=== PATIENT | male | born 1980 | race Two or more races ===

== ENCOUNTER 2022-10-12 20:03 | Inpatient (IN) | payer BC, OTHER ==
[~2022-10-12] VITALS: Ht 180.3 cm; Wt 101.0 kg
[2022-10-12 20:59] LABS: Basophils # (auto) 0.1 10 ^3/uL (0-0.2); Eosinophils # (auto) 0.2 10 ^3/uL (0-0.8); Lymphocytes # (auto) 2.5 10 ^3/uL (0.4-5.4); Lymphocytes % (auto) 28.4 % (10.0-50.0); Mean Corpuscular Hemoglobin 31.1 pg (28.0-32.0); Mean Corpuscular Hgb Conc. 34.1 g/dL (32.0-36.0); Mean Corpuscular Volume 91.3 fL (80.0-100.0); Monocytes # (auto) 0.6 10 ^3/uL (0-1.3); Monocytes % (auto) 7.2 % (0.0-12.0); Neutrophils # (auto) 5.4 10 ^3/uL (1.6-8.6); Neutrophils % (auto) 61.4 % (37.0-80.0); Nucleated Red Blood Cells % 0.1 %; Red Blood Cells 4.81 10^6/uL (4.5-5.90); Red Cell Distribution Width 13.2 % (11.8-14.3); White Blood Cell 8.8 10^3/uL (4.4-10.8)
[2022-10-12 21:17] LABS: Albumin 3.8 g/dL (3.4-5.0); Calcium 8.5 mg/dL (8.5-10.1); Potassium 4.2 mmol/L (3.5-5.1)
[2022-10-12 21:21] LABS: BUN/Creatinine Ratio 14.5 (10.0-20.0); Bilirubin, Total 0.5 mg/dL (0.2-1.0); Total Protein 7.6 g/dL (6.4-8.2)
[2022-10-12] MEDS ORDERED: PANTOPRAZOLE 40 MG/10 ML VIAL INJ IV ONE (22:15)
[2022-10-12] MEDS ORDERED: ENOXAPARIN SOD 100 MG/1 ML SYRINGE SC ONE (22:15)
[2022-10-12] MEDS ORDERED: SODIUM CHLORIDE 0.9% 1,000 ML IV ONE (22:15)
[2022-10-12 22:56] LABS: INR 1.1 (0.9-1.15); Partial Thromboplastin Time 30.1 SEC (24.5-34.5)
[2022-10-12] MEDS: SODIUM CHLORIDE 0.9% 1,000 ML IV SCH (23:00)
[2022-10-12] MEDS ORDERED: DOCUSATE SOD 100 MG CAP PO PRN (23:00)
[2022-10-12] MEDS ORDERED: DEXTROSE (50%) 50ML SYRG IV PRN (23:00)
[2022-10-12] MEDS ORDERED: ACETAMINOPHEN 325 MG TAB PO PRN (23:00)
[2022-10-12] MEDS ORDERED: MORPHINE SULFATE INJ 2 MG/ml SYRG IV PRN ×2 (23:00)
[2022-10-12] MEDS ORDERED: ONDANSETRON HCL 4 MG/2 ML VIAL IV PRN (23:00)
[2022-10-12] MEDS ORDERED: HYDROcodone-ACET 5/325MG TAB PO PRN (23:00)
[2022-10-12] MEDS ORDERED: NITROGLYCERIN 0.4 MG SL TAB SL PRN (23:00)
[2022-10-13 06:17] LABS: Basophils # (auto) 0.1 10 ^3/uL (0-0.2); Basophils % (auto) 0.8 % (0.0-2.0); Eosinophils # (auto) 0.2 10 ^3/uL (0-0.8); Eosinophils % (auto) 2.6 % (0.0-7.0); Hematocrit 43.2 % (41.0-53.0); Hemoglobin 14.9 g/dL (13.5-17.5); Lymphocytes # (auto) 2.4 10 ^3/uL (0.4-5.4); Lymphocytes % (auto) 35.1 % (10.0-50.0); Mean Corpuscular Hemoglobin 31.7 pg (28.0-32.0); Mean Corpuscular Hgb Conc. 34.5 g/dL (32.0-36.0); Mean Corpuscular Volume 92.1 fL (80.0-100.0); Monocytes # (auto) 0.5 10 ^3/uL (0-1.3); Monocytes % (auto) 7.4 % (0.0-12.0); Neutrophils # (auto) 3.6 10 ^3/uL (1.6-8.6); Neutrophils % (auto) 54.1 % (37.0-80.0); Nucleated Red Blood Cells % 0.1 %; Red Blood Cells 4.69 10^6/uL (4.5-5.90); Red Cell Distribution Width 13.3 % (11.8-14.3); White Blood Cell 6.7 10^3/uL (4.4-10.8)
[2022-10-13 06:35] LABS: Potassium 3.7 mmol/L (3.5-5.1)
[2022-10-13 06:50] LABS: Albumin 3.7 g/dL (3.4-5.0); BUN/Creatinine Ratio 16.1 (10.0-20.0); Bilirubin, Total 0.5 mg/dL (0.2-1.0); Calcium 8.5 mg/dL (8.5-10.1); Total Protein 7.4 g/dL (6.4-8.2)
[2022-10-13] MEDS: InsuLIN REG 1unit/0.01ml Soln (100units/ml) SC SCH ×4 (07:00→22:16)
[2022-10-13] MEDS: ACCU-CHEK COMFORT CURVE STRIP VI SCH ×4 (07:06→22:15)
[2022-10-13] MEDS ORDERED: ENOXAPARIN SOD 100 MG/1 ML SYRINGE SC SCH (10:00)
[2022-10-13] MEDS: SODIUM CHLORIDE 0.9% 1,000 ML IV SCH ×2 (10:27→23:25)
[2022-10-13 10:51] VITALS: PULSE 82; RESP 16; O2SAT 98
[2022-10-13 15:07] LABS: Urine Bacteria NONE SEEN /hpf (None Seen); Urine Blood Negative /uL (Negative); Urine Specific Gravity 1.027 (1.001-1.035); Urine WBC 1 /hpf (0 - 3)
[2022-10-13 15:50] LABS: Alcohol, Urine < 3.0 mg/dL (0-10); Amphetamine Screen, Urine NEGATIVE (NEGATIVE); Barbiturate Scree,Urine NEGATIVE (NEGATIVE); Benzodiazephine Screen, Urine NEGATIVE (NEGATIVE); Cannabinoid Screen, Urine NEGATIVE (NEGATIVE); Cocaine Screen, Urine NEGATIVE (NEGATIVE); Opiate Scree,Urine NEGATIVE (NEGATIVE); Phencyclidine Screen, Urine NEGATIVE (NEGATIVE)
[2022-10-13 19:30] VITALS: PULSE 77; RESP 18; O2SAT 96
[2022-10-13] MEDS: ATORVASTATIN 20 MG TAB PO SCH (22:15)
[2022-10-13] MEDS: ENOXAPARIN SOD 100 MG/1 ML SYRINGE SC SCH (22:15)
[2022-10-13 23:21] VITALS: BP 131/76; PULSE 76; RESP 16; TEMP 98.1; O2SAT 94
[2022-10-14] VITALS (13 sets, daily range): BP systolic 118–138; BP diastolic 68–85; PULSE 63–93; RESP 14–19; TEMP 97.4–98; O2SAT 92–97
[2022-10-14] MEDS ORDERED: PNEUMOCOCCAL VACC POLYS 25 MCG/0.5 ML VIAL IM ONE (00:30)
[2022-10-14 06:08] LABS: Basophils # (auto) 0.1 10 ^3/uL (0-0.2); Basophils % (auto) 1.3 % (0.0-2.0); Eosinophils # (auto) 0.1 10 ^3/uL (0-0.8); Eosinophils % (auto) 2.5 % (0.0-7.0); Hematocrit 41.3 % (41.0-53.0); Hemoglobin 14.1 g/dL (13.5-17.5); Lymphocytes # (auto) 1.9 10 ^3/uL (0.4-5.4); Lymphocytes % (auto) 32.9 % (10.0-50.0); Mean Corpuscular Hemoglobin 31.3 pg (28.0-32.0); Mean Corpuscular Hgb Conc. 34.1 g/dL (32.0-36.0); Mean Corpuscular Volume 91.8 fL (80.0-100.0); Monocytes # (auto) 0.5 10 ^3/uL (0-1.3); Monocytes % (auto) 8.3 % (0.0-12.0); Neutrophils # (auto) 3.2 10 ^3/uL (1.6-8.6); Nucleated Red Blood Cells % 0.1 %; Red Cell Distribution Width 13.2 % (11.8-14.3); White Blood Cell 5.7 10^3/uL (4.4-10.8)
[2022-10-14 06:22] LABS: INR 1.1 (0.9-1.15)
[2022-10-14] MEDS: ACCU-CHEK COMFORT CURVE STRIP VI SCH ×4 (06:26→21:33)
[2022-10-14] MEDS: InsuLIN REG 1unit/0.01ml Soln (100units/ml) SC SCH ×4 (06:27→21:34)
[2022-10-14 06:35] LABS: Calcium 8.3 mg/dL (8.5-10.1); Magnesium 2.4 mg/dL (1.6-2.6); Potassium 3.7 mmol/L (3.5-5.1)
[2022-10-14 06:40] LABS: BUN/Creatinine Ratio 16.2 (10.0-20.0)
[2022-10-14] MEDS ORDERED: INSU1.2I SC (07:24)
[2022-10-14] MEDS ORDERED: FENO145T27 PO (07:24)
[2022-10-14] MEDS ORDERED: METF-372 PO (07:24)
[2022-10-14] MEDS ORDERED: EMPA1TAB3 PO (07:24)
[2022-10-14] MEDS ORDERED: ATOR40TA52 PO (07:24)
[2022-10-14] MEDS ORDERED: HEPARIN 1,000 UNITS/ml 1ML VIAL IV ONE (09:00)
[2022-10-14] MEDS: ENOXAPARIN SOD 100 MG/1 ML SYRINGE SC SCH (09:28)
[2022-10-14] MEDS ORDERED: IODIXANOL 320MG/ML 100ML BTL IV ONE ×2 (12:38→12:57)
[2022-10-14] MEDS ORDERED: LIDOCAINE 2%HCL (LOCAL ANESTH.) INJ 20ML MDV ONE (12:38)
[2022-10-14] MEDS ORDERED: ANGIOMAX 250 MG VIAL IV ONE (12:39)
[2022-10-14] MEDS ORDERED: fentaNYL CITRATE 100 MCG/2 ML VL ONE (12:39)
[2022-10-14] MEDS ORDERED: SODIUM CHL 0.9% 0 ML ONE (12:40)
[2022-10-14] MEDS ORDERED: MIDAZOLAM HCL 2MG/2ML 2ml VIAL (1mg/ml) ONE (12:40)
[2022-10-14] MEDS ORDERED: IOHEXOL 350 MG/ML 100ML IJ ONE (13:02)
[2022-10-14] MEDS ORDERED: HEPARIN SODIUM (PORCINE) 5000 UNITS/ML 1ML VIAL ONE ×3 (13:16→13:57)
[2022-10-14] MEDS ORDERED: ENOXAPARIN SOD 100 MG/1 ML SYRINGE SC ONE ×2 (20:45→21:00)
[2022-10-14] MEDS: ATORVASTATIN 20 MG TAB PO SCH (21:32)
[2022-10-15] VITALS (7 sets, daily range): BP systolic 124–147; BP diastolic 72–84; PULSE 78–108; RESP 16–20; TEMP 97.8–98.6; O2SAT 96–98
[2022-10-15] MEDS: SODIUM CHLORIDE 0.9% 1,000 ML IV SCH ×2 (01:01→21:07)
[2022-10-15] MEDS: InsuLIN REG 1unit/0.01ml Soln (100units/ml) SC SCH ×4 (06:25→21:08)
[2022-10-15] MEDS: ACCU-CHEK COMFORT CURVE STRIP VI SCH ×4 (06:25→21:07)
[2022-10-15 06:53] LABS: BUN/Creatinine Ratio 15.8 (10.0-20.0); Calcium 8.3 mg/dL (8.5-10.1); Potassium 4.3 mmol/L (3.5-5.1)
[2022-10-15 06:55] LABS: Basophils # (auto) 0.1 10 ^3/uL (0-0.2); Basophils % (auto) 0.7 % (0.0-2.0); Eosinophils # (auto) 0.2 10 ^3/uL (0-0.8); Eosinophils % (auto) 2.3 % (0.0-7.0); Hematocrit 41.5 % (41.0-53.0); Hemoglobin 13.8 g/dL (13.5-17.5); Lymphocytes # (auto) 1.9 10 ^3/uL (0.4-5.4); Lymphocytes % (auto) 20.9 % (10.0-50.0); Mean Corpuscular Hemoglobin 30.9 pg (28.0-32.0); Mean Corpuscular Hgb Conc. 33.3 g/dL (32.0-36.0); Monocytes # (auto) 0.8 10 ^3/uL (0-1.3); Monocytes % (auto) 9.2 % (0.0-12.0); Neutrophils % (auto) 66.9 % (37.0-80.0); Red Blood Cells 4.46 10^6/uL (4.5-5.90); Red Cell Distribution Width 13.4 % (11.8-14.3); White Blood Cell 8.9 10^3/uL (4.4-10.8)
[2022-10-15] MEDS ORDERED: ELIQUIS PO SCH (08:00)
[2022-10-15] MEDS: APIXABAN 5 MG TAB PO SCH ×2 (09:28→21:07)
[2022-10-15] MEDS: ATORVASTATIN 20 MG TAB PO SCH (21:07)
[2022-10-16 05:00] VITALS: BP 118/73; PULSE 83; RESP 16; TEMP 97.8; O2SAT 96
[2022-10-16] MEDS: ACCU-CHEK COMFORT CURVE STRIP VI SCH ×2 (06:07→11:03)
[2022-10-16] MEDS: InsuLIN REG 1unit/0.01ml Soln (100units/ml) SC SCH ×2 (06:30→11:07)
[2022-10-16 08:00] VITALS: PULSE 81
[2022-10-16 08:30] VITALS: BP 116/70; PULSE 87; RESP 17; TEMP 98
[2022-10-16 09:00] VITALS: BP 116/70; PULSE 87; RESP 17; TEMP 98; O2SAT 98
[2022-10-16] MEDS: APIXABAN 5 MG TAB PO SCH (09:49)
[2022-10-16] MEDS ORDERED: APIX5TAB PO (10:14)
[2022-10-16] MEDS: SODIUM CHLORIDE 0.9% 1,000 ML IV SCH (10:20)
[2022-10-16 10:25] VITALS: BP 132/83; PULSE 84; RESP 18; TEMP 98.2; O2SAT 95
[2022-10-22] MEDS ORDERED: APIXABAN 5 MG TAB PO SCH (10:00)
== END 2022-10-16 14:52 | disposition home or self-care (01) | DRG 272 ==
LOC: ER 20:03 → TELE 23:01 → TELE-WESTW 10-13 21:13
PROVIDERS: ADMIT Internal Medicine; ATTEND Internal Medicine
PROC: 06CN3ZZ Extirpation of Matter from Left Femoral Vein, Percutaneous Approach (ICD-10-PCS; principal; 2022-10-14)
PROC: 06CG3ZZ Extirpation of Matter from Left External Iliac Vein, Percutaneous Approach (ICD-10-PCS; 2022-10-14)
PROC: 04CN3ZZ Extirpation of Matter from Left Popliteal Artery, Percutaneous Approach (ICD-10-PCS; 2022-10-14)
PROC: B41GYZZ Fluoroscopy of Left Lower Extremity Arteries using Other Contrast (ICD-10-PCS; 2022-10-14)
PROC: 06H03DZ Insertion of Intraluminal Device into Inferior Vena Cava, Percutaneous Approach (ICD-10-PCS; 2022-10-14)
PROC: B519YZZ Fluoroscopy of Inferior Vena Cava using Other Contrast (ICD-10-PCS; 2022-10-14)
DX: I82.412 Acute embolism and thrombosis of left femoral vein (principal); E78.5 Hyperlipidemia, unspecified; E11.65 Type 2 diabetes mellitus with hyperglycemia; E66.9 Obesity, unspecified; Z83.3 Family history of diabetes mellitus; Z68.31 Body mass index [BMI] 31.0-31.9, adult
CPT/HCPCS: 36415; 37187; 37191; 71045; 74176; 75710; 76937; 80048; 80053; 80061; 80307; 81001; 82105; 82306; 82378; 82962; 83036; 83735; 83880; 84154; 84443; 85025; 85379; 85610; 85730; 86301; 86850; 86900; 86901; 87081; 93306; 93971; 99152; 99153; C1894; C9113; G0378; J1815; J2250; Q9967